=== PATIENT | male | born 2005 | race Caucasian/White ===

== ENCOUNTER 2024-12-19 11:51 | Emergency (ER) | payer OTHER, SELFPAY ==
[2024-12-19 12:02] VITALS: BP 118/83; PULSE 66; TEMP 36.9; O2SAT 98; BMI 18.5
--- OUTSIDE RECORDS SUMMARY | 2024-12-19 12:08 | XMS_ITS | Encounter Summary ---
Author Organization [facility] Address [address] [facility] [place] [address] Care Team Providers Care Outside Operator Name Role Phone Unavailable Primary Care Provider Unavailabl e Reason for Visit * Reason Comments Med Refill Encounter Details Date Type Department Care Team (Late st Contact Info) Description 09/06/2023 [facility] [address] [place] [phone] Mariluz Turner NP [address] [place] [phone] Environmental and seasonal allergies Social History Tobacco Use Types Packs/Day Years Used Date Smoking Tobacco: Never Assessed Sex and Gender Information Value Date Recorded Sex Assigned at Not on file Legal Sex Male 7:01 PM EDT Gender Identity Not on file Sexual Orientation Not on file documented as of this encounter Miscellaneous Notes * Telephone Encounter - Mariluz Turner NP - 09/06/2023 7:29 PM EDT Needs an appt, documented in this encounter Plan of Treatment Not on file documented as of this encounter Visit Diagnoses Diagnosis Environmental and seasonal allergies documented in this encounter
--- OUTSIDE RECORDS SUMMARY | 2024-12-19 12:08 | XMS_ITS | Encounter Summary ---
Author Organization [facility] Address [address] [facility] [place] [address] Care Team Providers Care Information Technology Teacher Name Role Phone Unavailable Primary Care Provider Unavailabl e Reason for Visit * Reason Comments Med Refill Encounter Details Date Type Department Care Team (Late st Contact Info) Description 12/27/2023 Refill [facility] [address] [place] [address] Mariluz Turner, MARCOS [address] [place] [address] Social History Tobacco Use Types Packs/Day Years Used Date Smoking Tobacco: Never Assessed Sex and Gender Information Value Date Recorded Sex Assigned at Not on file Legal Sex Male 7:01 PM EDT Gender Identity Not on file Sexual Orientation Not on file documented as of this encounter Plan of Treatment Not on file documented as of this encounter Visit Diagnoses Not on filedocumented in this encounter
--- OUTSIDE RECORDS SUMMARY | 2024-12-19 12:08 | XMS_ITS | Clinical Summary ---
Author Organization [facility] Address [address] [place] [address] Phone Care Team Providers Care Deputy Bailiff Name Role Phone Unavailable Primary Care Provider Unavailabl e Social History Tobacco Use Types Packs/Day Years Used Date Smoking Tobacco: Never Assessed Sex and Gender Information Value Date Recorded Sex Assigned at Not on file Legal Sex Male 1:45 PM EST Gender Identity Not on file Sexual Orientation Not on file Plan of Treatment Not on file
--- OUTSIDE RECORDS SUMMARY | 2024-12-19 12:08 | XMS_ITS | Encounter Summary ---
Author Organization [facility] Address [address] [facility] [place] [address] Care Team Providers Care Educational Programming Director Name Role Phone Unavailable Primary Care Provider Unavailabl e Reason for Visit * Reason Comments Med Refill Encounter Details Date Type Department Care Team (Late st Contact Info) Description 06/10/2023 Refill [facility] [address] [place] [address] Mariluz Turner, MARCOS [address] [place] [phone] Environmental and seasonal allergies (Primary Dx) Social History Tobacco Use Types Packs/Day Years [...] encounter Visit Diagnoses Diagnosis Environmental and seasonal allergies- Primary documented in this encounter
--- OUTSIDE RECORDS SUMMARY | 2024-12-19 12:08 | XMS_ITS | Clinical Summary ---
Author Organization [facility] Address [address] [facility] [place] [address] Care Team Providers Care Taker Out Name Role Phone Unavailable Primary Care Provider Unavailabl e Medications fluticasone (Flonase) 50 MCG/ACT nasal sprayIndication s:Environmental and seasonal allergies Administer 2 sprays into each nostril in the morning. 48 g 1 4 Active montelukast (Singulair) 10 MG tabletIndicatio ns:Environmenta l and seasonal allergies Take 1 tablet (10 mg) by mouth in the morning. 90 tablet 4 Active loratadine (Claritin) 10 MG tabletIndicatio ns:Environmenta l and seasonal allergies Take 1 tablet (10 mg) by mouth in the morning. 90 tablet 4 Active Active Problems Problem Noted Date Diagnosed Date Environmental and seasonal allergies 06/12/2023 Resolved Problems Problem Noted Date Diagnosed Date Resolved Date Allergies 06/12/2023 06/12/2023 Social History Tobacco Use Types Packs/Day Years Used Date Smoking Tobacco: Never Assessed Sex and Gender Information Value Date Recorded Sex Assigned at Not on file Legal Sex Male 7:01 PM EDT Gender Identity Not on file Sexual Orientation Not on file Plan of Treatment Not on file
--- OUTSIDE RECORDS SUMMARY | 2024-12-19 12:08 | XMS_ITS | Encounter Summary ---
Author Organization [facility] Address [address] [place] [address] Phone Care Team Providers Care Change Booth Attendant Name Role Phone Unavailable Primary Care Provider Unavailabl e Encounter Details Date Type Department Care Team (Late st Contact Info) Description 09/05/2006 Scanned Document [facility] [address] [place] [phone] Scanning, Generic Provider Social History Tobacco Use Types Packs/Day Years [...]
--- OUTSIDE RECORDS SUMMARY | 2024-12-19 12:08 | XMS_ITS | Clinical Summary ---
Author Organization [facility] Address [address], [address] [place] [address] Care Team Providers Care Dress Marker Name Role Phone Unavailable Primary Care Provider Unavailabl e Social History Tobacco Use Types Packs/Day Years Used Date Smoking Tobacco: Never Assessed Sex and Gender Information Value Date Recorded Sex Assigned at Not on file Legal Sex Male 10:52 PM EST Gender Identity Not on file Sexual Orientation Not on file Plan of Treatment Not on file [facility]
--- NOTE | 2024-12-19 12:10 | CT_ITS ---
The [address] [address] Patient Name: DAMIR MURCIA MRN: [id number] date: 2005 Sex: M Assigned Patient Location: ED.MAIN Current Patient Location: ED.MAIN Accession/Order Number: [id number] Exam Date: 12/19/2024 12:34 Report Date: 12/19/2024 12:38 At the request of: BALA KATE MD Procedure: CT head/brain wo con CT head/brain wo con 12/19/2024 12:21 PM SIGNS AND SYMPTOMS: ^left headache TECHNIQUE:Multi-detector CT axial slices of the brain were obtained without IV contrast. CT was performed with one or more of the following dose reduction techniques: Automated exposure control, adjustment of the mA and/or kV according to patient size, or use of iterative reconstruction technique. COMPARISON: 12/17/2021. FINDINGS: There is no shift of the midline structures, acute intracranial bleeding, mass effects, or evidence of acute ischemia. The ventricular system is normal in size. The brainstem and the cerebellum are unremarkable. The visualized intraorbital contents, the visualized paranasal sinuses, and the infratemporal soft tissues show no acute abnormality. The osseous structures in the skull base and the calvarium show no abnormality. CT/CT head/brain wo con IMPRESSION: Normal noncontrasted CT brain. Impression dictated by: Lang Rice M.D. 12/19/2024 12:38 PM Dictation Location: [place] [address] Electronically authenticated by: [id number] Y Date: 12/19/2024 12:38
[2024-12-19] MEDS: KETOROLAC TROMETHAMINE 30 MG/ML VIAL 15 MG IVP (12:36)
[2024-12-19 12:48] LABS: Hematocrit 40.1 % (42.0-54.0); Hemoglobin 14.5 g/dL (14.0-18.0); Immature Granulocytes Abs Auto 0.01 10^3/uL (0.00-0.03); Immature Granulocytes Pct Auto 0.2 % (0.0-0.5); Lymphocytes Absolute Auto 1.8 10^3/uL (1.2-3.8); Mean Corpuscular HGB Conc 36.2 g/dL (29.9-35.2); Mean Corpuscular Hemoglobin 31.5 pg (25.9-34.0); Mean Corpuscular Volume 87.0 fL (80.0-94.0); Platelet Count 144 10^3/uL (150-450); Red Blood Count 4.61 10^6/uL (4.70-6.10); White Blood Count 6.4 10^3/uL (4.0-11.0)
[2024-12-19 12:59] LABS: Alanine Aminotransferase 28 U/L (16-63); Albumin Globulin Ratio 1.5; Albumin Level 4.4 g/dL (3.4-5.0); Alkaline Phosphatase 64 U/L (46-116); Anion Gap 12.5; Aspartate Amino Transferase 18 U/L (15-37); Blood Urea Nitrogen 10.0 mg/dL (7.0-18.0); Calcium 9.3 mg/dL (8.5-10.1); Carbon Dioxide 28.0 mmol/L (21.0-32.0); Chloride 103 mmol/L (98-107); Estimated GFR (African America >60 (>=60 mL/min/1.73m^2); Estimated GFR (Non-African Ame >60 (>=60 mL/min/1.73m^2); Globulin 2.9 g/dL; Glucose 96 mg/dL (74-106); Potassium 3.5 mmol/L (3.5-5.1); Sodium 140 mmol/L (136-145); Total Protein 7.3 g/dL (6.4-8.2)
--- NOTE | 2024-12-19 13:08 | CT_ITS ---
The [address] [address] Patient Name: DAMIR MURCIA MRN: [id number] date: 2005 Sex: M Assigned Patient Location: ER Current Patient Location: ER Accession/Order Number: [id number] Exam Date: 12/19/2024 14:01 Report Date: 12/19/2024 14:05 At the request of: BALA KATE MD Procedure: CT angio head CT angio head 12/19/2024 1:41 PM SIGNS AND SYMPTOMS: ^left sided headache while doing pushup CONTRAST: 100 mL of intravenous Omnipaque 350 TECHNIQUE: Multi-detector CT angiography axial slices of the head were obtained during intravenous administration of IV contrast material. Sagittal, coronal, and 3-D reconstructions were performed and viewed on a separate workstation. CT was performed with one or more of the following dose reduction techniques: Automated exposure control, adjustment of the mA and/or kV according to patient size, or use of iterative reconstruction technique. Stenoses were measured using the NASCET criteria. COMPARISON: 12/19/2024 FINDINGS: The superior cerebellar arteries, posterior inferior cerebellar arteries, and the basilar artery are within normal limits. The posterior cerebral arteries are unremarkable. The intracranial segments of the internal carotid arteries are within normal limits. There are normal anterior and middle cerebral arteries. Anterior communicating artery is patent. Posterior communicating arteries are present. The deep venous system and dural venous systems appear to be patent. No bony abnormalities are appreciated. CT/CT angio head IMPRESSION: No evidence of focal stenosis, aneurysmal dilatation, dissection or occlusion. Impression dictated by: Lang Rice M.D. 12/19/2024 2:05 PM Dictation Location: [place] [address] Electronically authenticated by: [id number] Y Date: 12/19/2024 14:05
[2024-12-19 13:58] VITALS: BP 120/69; PULSE 81; O2SAT 100
--- NOTE | 2024-12-19 14:16 | ED.GENADUL1 ---
HPI HPI - General Adult General Chief complaint: Headache Stated complaint: HEADACHE Time Seen by Provider: 12/19/24 12:07 Source: patient Mode of arrival: walk-in Limitations: no limitations History of Present Illness HPI narrative: 19 years old male coming to the ER with a left-sided headache that started 3 days ago he was doing some push-ups, mentioned that this started in the middle of the push-up and did cause him to have left-sided headache associated with no nausea no vomiting No blurry vision at any time there was no other concerns no weakness in the upper or lower extremity but the patient did feel exhausted No neck pain or neck stiffness Related Data Home Medications ?Medication ?Instructions ?Recorded ?Confirmed cetirizine 10 mg tablet (24Hour 5 mg PO DAILY PRN allergy symptoms 12/19/24 12/19/24 Allergy) Allergies Allergy/AdvReac Type Severity Reaction Status Date / Time No Known Drug Allergies Allergy Verified 12/19/24 12:01 Opioid HPI Opioid Management Most Recent Opioid Data: Last Pain Scale 2 Today, 12:36 Last MAR Pain Assessment Today, 12:36 Review of Systems ROS Status of ROS 10 or more systems reviewed and unremarkable except as noted in history and below PFSH PFS Social History Little interest or pleasure in doing things: not at all Feeling down, depressed, or hopeless: not at all Exam Narrative Exam Narrative: Nurses notes and vital signs reviewed and patient is not hypoxic. General: Well-appearing and in no apparent distress. Skin: Warm, dry, no pallor noted. No rash. Head: Normocephalic, atraumatic. Neck: Supple, non-tender. Eye: Pupils are equal, round and EOMI. No scleral icterus. Cardiovascular: Regular Rate and Rhythm without murmur, gallop or rub. Respiratory: No accessory muscle use or respiratory distress. Lungs are clear to auscultation, no wheezing, rales or rhonchi Chest Wall: no tenderness Back: No midline thoracic or lumbar vertebral tenderness. No CVA tenderness Musculoskeletal: normal ROM, no calf or popliteal tenderness, no lower extremity edema/swelling GI: Abdomen is soft, non-distended. Normal bowel sounds. No masses appreciated. No tenderness to palpation. No rebound, guarding, or rigidity noted. Neurological: A&O x4. No cranial nerve dysfunction observed. No truncal ataxia. Moves all extremities. Sensation intact. Psychiatric: Cooperative and interactive. Normal mood and affect. Constitutional Vital Signs, click to edit/add: Last Vital Signs Temp 98.4 F 12/19/24 12:02 Pulse 60 12/19/24 14:30 Resp 16 12/19/24 14:30 BP 115/73 12/19/24 14:30 Pulse Ox 100 12/19/24 14:30 O2 Del Method Room Air 12/19/24 14:30 Course Vital Signs Vital signs: Vital Signs Temperature 98.4 F 12/19/24 12:02 Pulse Rate 66 12/19/24 12:02 Respiratory Rate 18 12/19/24 12:02 Blood Pressure 118/83 12/19/24 12:02 Pulse Oximetry 98 12/19/24 12:02 Oxygen Delivery Method Room Air 12/19/24 12:02 Temperature 98.4 F 12/19/24 12:02 Pulse Rate 60 12/19/24 14:30 Respiratory Rate 16 12/19/24 14:30 Blood Pressure 115/73 12/19/24 14:30 Pulse Oximetry 100 12/19/24 14:30 Oxygen Delivery Method Room Air 12/19/24 14:30 Medical Decision Making [facility] Narrative Medical decision making narrative: The patient CT head showed no acute pathology And the CBC and chemistry showed no acute pathology as well in addition CT angio head showed no aneurysm especially with the patient history of having headache with push up The patient headache resolved after Toradol and he was feeling much better Right now the patient will avoid any exertion and follow-up with his primary care doctor within the week for further evaluation Dizziness symptoms are concerning the patient to come back to the ER also the patient instructed about hydration especially with the fact that he just received a contrast study I did discuss the case with Dr. Gomez and neurology service and he agreed with above-mentioned plan The patient was feeling much better and had no more symptoms before then discharged The patient is to follow up with primary care physician in next 2-3 days or to return to the emergency department should any of the signs or symptoms worsen or new symptoms develop. The patient agrees with the following Diagnosis and Treatment plan and the patient will be discharged home. Lab Data Labs: Lab Results 12/19/24 Range/Units 12:34 WBC 6.4 (4.0-11.0) 10^3/uL RBC 4.61 L (4.70-6.10) 10^6/uL Hgb 14.5 (14.0-18.0) g/dL Hct 40.1 L (42.0-54.0) % MCV 87.0 (80.0-94.0) fL MCH 31.5 (25.9-34.0) pg MCHC 36.2 H (29.9-35.2) g/dL RDW 12.0 (11.0-15.0) % Plt Count 144 L (150-450) 10^3/uL MPV 13.3 (9.5-13.5) fL Neut % (Auto) 57.3 (43.0-75.0) % Lymph % (Auto) 28.4 (20.5-60.0) % [place] % (Auto) 6.6 (1.7-12.0) % Eos % (Auto) 6.6 (0.9-7.0) % Baso % (Auto) 0.9 (0.2-2.0) % Neut # (Auto) 3.7 (1.4-6.5) 10^3/uL Lymph # (Auto) 1.8 (1.2-3.8) 10^3/uL [place] # (Auto) 0.4 (0.3-0.8) 10^3/uL Eos # (Auto) 0.4 (0.0-0.7) 10^3/uL Baso # (Auto) 0.1 (0.0-0.1) 10^3/uL Abs Immat Gran (auto) 0.01 (0.00-0.03) 10^3/uL Imm/Tot Granulo (auto) 0.2 (0.0-0.5) % Sodium 140 (136-145) mmol/L Potassium 3.5 (3.5-5.1) mmol/L Chloride 103 (98-107) mmol/L Carbon Dioxide 28.0 (21.0-32.0) mmol/L Anion Gap 12.5 BUN 10.0 (7.0-18.0) mg/dL Creatinine 0.88 (0.70-1.30) mg/dL Est GFR ( Amer) >60 (>=60 mL/min/1.73m^2) Est GFR (Non-Af Amer) >60 (>=60 mL/min/1.73m^2) BUN/Creatinine Ratio 11.4 Glucose 96 (74-106) mg/dL Calcium 9.3 (8.5-10.1) mg/dL Total Bilirubin 1.0 (0.2-1.0) mg/dL AST 18 (15-37) U/L ALT 28 (16-63) U/L Alkaline Phosphatase 64 (46-116) U/L Total Protein 7.3 (6.4-8.2) g/dL Albumin 4.4 (3.4-5.0) g/dL Globulin 2.9 g/dL Albumin/Globulin Ratio 1.5 Discharge Plan Discharge Chief Complaint: Headache Clinical Impression: Headache Patient Disposition: Home, Self-Care Time of Disposition Decision: 14:22 Condition: Good Prescriptions / Home Meds: No Action cetirizine [24Hour Allergy] 10 mg tablet 5 mg PO DAILY PRN (Reason: allergy symptoms) Print Language: Chilean Instructions: Acute Headache (DC) Additional Instructions: Please drink plenty of water for the next 2 days because you just had contrast CAT scan Referrals: Mariluz Turner NP [Primary Care Provider, Family Practice] - 1 week Discharge Date/Time: 12/19/24 14:33
[2024-12-19 14:30] VITALS: BP 115/73; PULSE 60; O2SAT 100
== END 2024-12-19 14:33 | disposition home or self-care (01) ==
PROVIDERS: Emergency Provider Emergency Medicine; PCP Nurse Practitioner
DX: R51.9 Headache, unspecified (principal)
CPT/HCPCS: 36415; 70450; 70496; 80053; 85025; 96374; 99285; J1885; Q9967